=== PATIENT | male | born 1990 | race African-American/Black ===

== ENCOUNTER 2023-06-07 15:08 | Emergency (ER) | payer MEDICAID, OTHER ==
[~2023-06-07] VITALS: Ht 175.3 cm; Wt 76.2 kg
[2023-06-07 16:05] LABS: Hemoglobin 12.7 g/dL (13.5-17.5); Lymphocytes # (auto) 1.7 10 ^3/uL (0.4-5.4); Mean Corpuscular Hemoglobin 21.1 pg (28.0-32.0); Monocytes # (auto) 0.4 10 ^3/uL (0-1.3); Nucleated Red Blood Cells % 0.1 %; Red Blood Cells 6.01 10^6/uL (4.5-5.90); White Blood Cell 7.2 10^3/uL (4.4-10.8)
[2023-06-07 16:07] LABS: Basophils # (auto) 0.1 10 ^3/uL (0-0.2); Basophils % (auto) 0.8 % (0.0-2.0); Eosinophils # (auto) 0 10 ^3/uL (0-0.8); Eosinophils % (auto) 0.5 % (0.0-7.0); Hematocrit 40.5 % (41.0-53.0); Lymphocytes % (auto) 23.5 % (10.0-50.0); Mean Corpuscular Hgb Conc. 31.3 g/dL (32.0-36.0); Mean Corpuscular Volume 67.3 fL (80.0-100.0); Monocytes % (auto) 5.5 % (0.0-12.0); Neutrophils % (auto) 69.7 % (37.0-80.0); Red Cell Distribution Width 14.9 % (11.8-14.3)
[2023-06-07 16:12] LABS: Chloride 103 mmol/L (98-107); Potassium 4.2 mmol/L (3.5-5.1); Sodium 135 mmol/L (136-145)
[2023-06-07 16:13] LABS: Anion Gap 8 (5-15); Carbon Dioxide 24 mmol/L (20-30)
[2023-06-07 16:14] LABS: Calcium 9.5 mg/dL (8.5-10.1)
[2023-06-07 16:18] LABS: BUN/Creatinine Ratio 8.5 (10.0-20.0); Blood Urea Nitrogen 8 mg/dL (9-23); Glucose 99 mg/dL (74-106)
[2023-06-07 18:35] LABS: Urine Bacteria None Seen /hpf (None Seen)
[2023-06-07] MEDS: MECLIZINE HCL 25 MG TAB PO ONE (18:40)
[2023-06-07] MEDS: ONDANSETRON ODT 4 MG TAB PO ONE (18:41)
[2023-06-07 18:42] VITALS: BP 143/92; PULSE 64; RESP 19; TEMP 98.1; O2SAT 100
[2023-06-07 19:08] LABS: Urine Blood Negative /uL (Negative); Urine Clarity Clear (Clear); Urine Color Light-Yellow (Yellow); Urine Protein, UAD Negative (Negative); Urine Specific Gravity 1.006 (1.001-1.035); Urine Urobilinogen Normal (Negative); Urine WBC <1 /hpf (0 - 3); Urine pH 6.5 (5.0-9.0)
[2023-06-07] MEDS ORDERED: ZOFR4T PO (20:03)
[2023-06-07] MEDS ORDERED: MECL1TAB42 PO (20:03)
== END 2023-06-07 20:15 | disposition home or self-care (01) ==
LOC: ER 15:08
DX: R42 Dizziness and giddiness (principal); R11.2 Nausea with vomiting, unspecified
CPT/HCPCS: 36415; 70450; 80048; 81001; 82962; 85025; 93005; 99284; J8597; Q0162

== ENCOUNTER 2023-11-12 08:52 | Emergency (ER) | payer MEDICAID, OTHER ==
[~2023-11-12] VITALS: Ht 175.3 cm; Wt 78.0 kg
[~2023-11-12 08:52] MED LIST: MECL1TAB42 PO; ZOFR4T PO
[2023-11-12 11:32] LABS: Urine Bacteria None Seen /hpf (None Seen)
[2023-11-12 12:01] LABS: Urine Blood Negative /uL (Negative); Urine Clarity Clear (Clear); Urine Color Colorless (Yellow); Urine Protein, UAD Negative (Negative); Urine Specific Gravity 1.009 (1.001-1.035); Urine Urobilinogen Normal (Negative); Urine WBC <1 /hpf (0 - 3); Urine pH 6.5 (5.0-9.0)
[2023-11-12 16:03] VITALS: BP 153/98; PULSE 71; RESP 16; TEMP 98.4; O2SAT 100
[2023-11-14 08:06] LABS: Chlamydia Trachomatis, NAA Negative (Negative); Neisseria gonorrhoeae, NAA Negative (Negative)
== END 2023-11-12 16:09 | disposition home or self-care (01) ==
LOC: ER 08:52
DX: K40.90 Unilateral inguinal hernia, without obstruction or gangrene, not specified as recurrent (principal); N50.812 Left testicular pain
CPT/HCPCS: 76870; 81001

== ENCOUNTER 2024-04-19 08:20 | Emergency (ER) | payer OTHER ==
[~2024-04-19] VITALS: Ht 172.7 cm; Wt 75.3 kg
[2024-04-19 08:49] VITALS: BP 157/111; PULSE 61; RESP 18; TEMP 98.2; O2SAT 97
[2024-04-19] MEDS ORDERED: AUG875T PO (08:58)
[2024-04-19] MEDS ORDERED: ACE3T PO (08:58)
--- NOTE | 2024-04-19 09:02 | ED.PDOC ---
Eye-HPI HPI Comments 34 year old male presents for tooth pain x 3 days. Pain located to the left upper and lower quadrant. Took Tylenol with minimal improvement. Pain located to tooth 27 and 37 Denies any medical hx. Missed dental apt, but will reschedule Chief Complaint: Tooth Pain Time Seen by MD: 08:32 Primary Care Provider: ChachaOA Reviewed Notes: Nurses Notes, Medications, Allergies Allergies: Coded Allergies: NO KNOWN ALLERGIES (Unverified , 06/07/23) Home Meds Active Scripts Acetaminophen W/ Codeine (Tylenol W/Cod #3) 1 Tab Tb, 1 TAB PO Q8HP PRN for 5 Days, #15 TAB 0 Refills Prov:MANE WASHINGTON ENOLOGIST 04/19/24 Amoxicillin & Pot Clavulanate (AUGMENTIN TABLET) 875 Mg Tb, 875 MG PO BID for 7 Days, #14 TAB 0 Refills Prov:MANE WASHINGTON ENOLOGIST 04/19/24 Ondansetron Odt 4MG Tab (ZOFRAN PO) 4 Mg Tb, 4 MG PO Q6HP PRN, #20 TAB ODT TAB-DISSOLVE IN MOUTH, THEN SWALLOW Prov:DAVID AL PAC 06/07/23 Meclizine HCl (Meclizine 25) 25 Mg Tab, 25 MG PO Q8HP PRN, #15 TAB Prov:DAVID AL PAC 06/07/23 Information Source: Patient Mode of Arrival: Ambulatory Past Medical History PAST MEDICAL HISTORY: Denies Surgical History: Denies all surgeries Family History Family History: Unknown Social History Smoker: Non-Smoker Alcohol: Denies ETOH Use Drugs: Denies Drug Use Lives In: Home All Other Systems: Reviewed and Negative (Per HPI) Physical Exam General Appearance: No Apparent Distress, Normal HEENT: Normal ENT Inspection, Pharynx Normal, TMs Normal, Other (Missing teeth, dental carries visible) Neck: Full Range of Motion, Non-Tender, Normal, Normal Inspection Respiratory: Chest Non-Tender, Lungs Clear, No Accessory Muscle Use, No Respiratory Distress, Normal Breath Sounds Cardiovascular: No Edema, No JVD, No Murmur, No Gallop, Normal Peripheral Pulses, Regular Rate/Rhythm Breast Exam: Deferred Gastrointestinal: No Organomegaly, Non Tender, No Pulsatile Mass, Normal Bowel Sounds, Soft Genitalia: Deferred Pelvic: Deferred Rectal: Deferred Extremities: No calf tenderness, Normal capillary refill, Normal inspection, Normal range of motion, Non-tender, No pedal edema Musculoskeletal : Apperance: Normal Neurologic: Alert, cna hha II-XII nml as Tested, No Motor Deficits, Normal Affect, Normal Mood, No Sensory Deficits Cerebellar Function: Normal Reflexes: Normal Skin: Dry, Normal Color, Warm Lymphatic: No Adenopathy Was a procedure done? Was a procedure done?: No EENT DIFF Eye: Other X-Ray, Labs, Meds, VS Vital Signs Date Time Temp Pulse Resp B/P (MAP) Pulse Ox O2 Delivery O2 Flow Rate FiO2 04/19/24 08:49 98.2 61 18 157/111 (126) 97 98.2 04/19/24 08:49 61 18 97 Room Air 04/19/24 08:29 98.2 61 18 164/104 (124) 97 159/108 (125) Current Medications Medications (Trade) Dose Ordered Sig/Emir Route Start Time Stop Time Status Last Admin Acetaminophen/ Codeine Phosphate (Tylenol W/Cod #3 Tablet) 1 tab ONCE ONCE PO 04/19/24 09:15 04/19/24 09:16 DC 04/19/24 09:08 X-Ray, Labs, Meds, VS Comment Afebrile, vitals within normal limits. Exam as above and airway fully patent and in no respiratory distress. The patient has no neck swelling, no dysphonia or hoarseness, no lymphadenopathy. No trismus or swollen tongue to suggest Calos's angina. No overt e/o peritonsillar abscess or retropharyngeal abscess. No overt e/o deep space infection; nontoxic appearing and tolerating PO. Non-focal neuro exam with low suspicion for Lemierres. No pain with percussion, low suspicion for periapical abscess. No mastoid tenderness so do not suspect mastoiditis and no pain with manipulation of ear to suggest otitis externa. Trial antibiotics with cautious return precautions discussed w/ full understanding. On reevaluation, patient had symptomatic improvement. Patient is stable for discharge at this time. External notes reviewed. Test results and diagnostic imaging interpreted. All diagnostic findings, discharge care, education and instructions provided Follow-up with PCP in 2 to 3 days Patient verbalized understanding and agreed to treatment plan Vital signs stable, afebrile, no acute distress noted Patient ambulatory with strong steady gait Advised to return precautions for any new or worsening symptoms, return to ER immediately for re-evaluation Patient is aware that the purpose of this visit was for an acute medical emergency requiring emergent stabilization. Chronic conditions, including malignancies have not been ruled out. Patient is instructed to follow up with PCP as directed and discharge instructions for continued care and workup. If unable to arrange follow-up, patient is to return to the emergency department for reassessment. Patient (parent or legal guardian if applicable) was given verbal and written discharge instructions and acknowledges understanding. Time of 1ST Reevaluation: 08:57 Reevaluation 1ST: Improved Patient Education/Counseling: Diagnosis, Treatment Family Education/Counseling: Diagnosis, Treatment Departure 1 Departure Time of Disposition: 09:01 Impression: Primary Impression: Pain, dental Additional Impression: Dental caries Disposition: HOME / SELF CARE / HOMELESS Condition: Stable e-Prescriptions Acetaminophen W/ Codeine (Tylenol W/Cod #3) 1 Tab Tb 1 TAB PO Q8HP PRN for 5 Days, #15 TAB 0 Refills Prov: MANE WASHINGTON NP 04/19/24 Amoxicillin & Pot Clavulanate (AUGMENTIN TABLET) 875 Mg Tb 875 MG PO BID for 7 Days, #14 TAB 0 Refills Prov: MANE WASHINGTON NP 04/19/24 Discharged With: Self Critical Care Note Critical Care Time?: No Stability Stability form required: No Heart Score Heart Score: Heart Score Response (Comments) Value History N/A 0 EKG N/A 0 Age N/A 0 Risk Factors N/A 0 Troponin N/A 0 Total 0 MANE WASHINGTON NP Apr 19, 2024 09:01
[2024-04-19] MEDS: ACETAMINOPHEN/CODEINE#3 (300/30mg) TAB PO ONE (09:08)
== END 2024-04-19 09:29 | disposition home or self-care (01) ==
LOC: ER 08:20
DX: K02.9 Dental caries, unspecified (principal); K08.89 Other specified disorders of teeth and supporting structures